=== PATIENT | male | born 1990 | race Caucasian/White ===

== ENCOUNTER 2019-09-07 17:27 | Emergency (ER) | payer MEDICAID ==
[~2019-09-07] VITALS: Ht 170.2 cm; Wt 103.0 kg
[2019-09-07 17:47] VITALS: Ht 170.2 cm; Wt 103.0 kg
[2019-09-07 18:06] VITALS: BP 141/69
== END 2019-09-07 18:06 | disposition home or self-care (01) ==
LOC: ED 17:27
DX: M79.604 Pain in right leg (principal); I10 Essential (primary) hypertension; Z76.0 Encounter for issue of repeat prescription

== ENCOUNTER 2019-10-18 00:58 | Emergency (ER) | payer MEDICAID ==
[~2019-10-18] VITALS: Ht 180.3 cm; Wt 95.7 kg
[2019-10-18 01:17] VITALS: BP 159/98; Ht 180.3 cm; Wt 95.7 kg
== END 2019-10-18 02:04 | disposition home or self-care (01) ==
LOC: ED 00:58
DX: L02.416 Cutaneous abscess of left lower limb (principal); S81.802A Unspecified open wound, left lower leg, initial encounter; X58.XXXA Exposure to other specified factors, initial encounter; Y93.89 Activity, other specified; Y92.89 Other specified places as the place of occurrence of the external cause; Y99.8 Other external cause status
CPT/HCPCS: J2001